=== PATIENT | female | born 1930 | race Caucasian/White ===

== ENCOUNTER 2016-10-18 10:11 | Emergency (ER) | payer MEDICARE, BC ==
[2016-10-18 10:17] VITALS: BP 150/90
--- NOTE | 2016-10-18 10:35 | UC ---
Complaint Female HPI - HPI Summary HPI Summary: 86 female presents with complaints of urinary frequency, urgency and burning that began last night however really worsened this morning. Patient denies known blood. States she has had 2 of these with one being ~2 months ago and one ~1 year ago. She states she has recently been diagnosed with prolapsed bladder and does not know if these infections are related. Patient denies back pain, abdominal pain and fever/chills. Normal bowel movements. No other PMHx. Has not taken any medications. Denies vaginal discharge and complaints. Denies external genitalia symptoms, erythema, discharge. - History Of Current Complaint Chief Complaint: UCGU Stated Complaint: UTI Time Seen by Provider: 10/18/16 10:33 Hx Obtained From: Patient ?: No Onset/Duration: Sudden Onset, Lasting Days - 1, Worse Since Timing: Constant Severity Initially: Mild Severity Currently: Moderate Pain Intensity: 8 Pain Scale Used: 0-10 Numeric Character: Burning Aggravating Factor(s): Urination Alleviating Factor(s): Nothing Associated Signs And Symptoms: Positive: Negative - Allergies/Home Medications Allergies/Adverse Reactions: Allergies Allergy/AdvReac Type Severity Reaction Status Date / Time Penicillins [PCN] Allergy Unknown Verified 10/18/16 10:17 Reaction Details Sulfa Antibiotics Allergy Unknown Verified 10/18/16 10:17 Reaction Details PMH/Surg Hx/FS Hx/Imm Hx - Additional Past Medical History Additional PMH: PMHx: prolapsed bladder. Denies HTN, Diabetes, Kidney disease and asthma. No medications. Other GI/ History: Urinary tract infection hx - Surgical History Surgical History: Yes Surgery Procedure, Year, and Place: D&C X's 2, CATARACTS - Family History Known Family History: Positive: Unknown, Cardiac Disease, Hypertension - Social History Alcohol Use: Daily Alcohol Amount: WINE Substance Use Type: None Smoking Status (MU): Never Smoked Tobacco - Immunization History Most Recent Influenza Vaccination: never Most Recent Tetanus Shot: unsure Most Recent Pneumonia Vaccination: never Review of Systems Constitutional: Negative Skin: Negative Respiratory: Negative Cardiovascular: Negative Gastrointestinal: Negative Genitourinary: Dysuria, Frequency, Urgency Musculoskeletal: Negative All Other Systems Reviewed And Are Negative: Yes Physical Exam Triage Information Reviewed: Yes Appearance: Well-Appearing, No Pain Distress, Well-Nourished Vital Signs: Initial Vital Signs Temp 98.3 F 10/18/16 10:12 Pulse 69 10/18/16 10:12 Resp 14 10/18/16 10:12 BP 150/90 10/18/16 10:12 Pulse Ox 98 10/18/16 10:12 slightly elevated BP noted, compared to previous visits and similar, patient states it increases when she is at doctors. Vital Signs Reviewed: Yes Eyes: Positive: Conjunctiva Clear ENT: Positive: Hearing grossly normal Neck: Positive: Supple, Nontender Respiratory: Positive: Chest non-tender, Lungs clear, Normal breath sounds, No respiratory distress, No accessory muscle use Cardiovascular: Positive: RRR, No Murmur, Pulses Normal Abdomen Description: Positive: Nontender, No Organomegaly, Soft. Negative: Bruit, CVA Tenderness (R), CVA Tenderness (L), Distended, Guarding, McBurney's Point Tenderness, Peritoneal Signs, Pulsatile Mass Bowel Sounds: Positive: Present Musculoskeletal: Positive: Strength Intact, ROM Intact Neurological: Positive: Alert Psychological Exam: Normal Skin Exam: Normal Complaint Female Dx - Course Course Of Treatment: urinalysis obtained and positive for leuk and blood. patient's symptoms did just begin. will send out for culture. due to symptoms, history and urinalysis findings will treat with macrobid at this time as she has no kidney disease and was given same medication last 2 episodes with relief. Increase fluid intake, advil for pain. Patient did not want pyridium. Follow up PCP/OBGYN especially due to more recurrent infections and prolapsed bladder. Aware of worsening signs and symptoms and to return if occur. - Differential Dx/Diagnosis Differential Diagnosis/HQI/PQRI: Renal Colic, Ureteral Stone, Urinary Tract Infection, Other - urinary prolapse Provider Diagnoses: UTI Discharge - Discharge Plan Condition: Stable Disposition: HOME Prescriptions: Nitrofurantoin Macrocrystals* [Macrodantin*] 100 mg PO BID #10 cap Patient Education Materials: Urinary Traction Infection in Older Adults (ED) Referrals: Kehinde Brush MD [Primary Care Provider] - Additional Instructions: Take medication as directed until entire dose is finished. Drink plenty of fluids, water and cranberry juice. Advil for pain as desired. Follow up with PCP. Return if symptoms worsen or do not improve or new symptoms develop as we discussed.
== END 2016-10-18 10:55 | disposition home or self-care (01) ==
LOC: UCEAST 10:11
DX: N39.0 Urinary tract infection, site not specified (principal); Z87.440 Personal history of urinary (tract) infections; N81.10 Cystocele, unspecified
CPT/HCPCS: 81003; 87086; 99212; G0463

== ENCOUNTER 2017-10-18 10:45 | Emergency (ER) | payer MEDICARE, BC ==
--- OUTSIDE RECORDS SUMMARY | 2017-10-18 10:53 | XMS REPORT ---
:1930 External Reference #:[id number] Author Organization [employer] Address [address] [place] [address] Phone [phone] Care Team Providers Name Role Phone Kehinde Brush III, MD Primary Care Physician Unavailable Payers Type Date Identification Numbers Payment Provider Subscriber Medicare Primary Effective: Policy Number: Medicare Hamlet Lindsey 1995 [id number] PayID: [id number] [address] [place] [address] Medigap Part B Policy Number: [id number] [facility] Star Lindsey PayID: [id number] [address] [place] [address] Problems Date Description Provider Status Onset: 03/15/2017 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 Onset: 03/15/2017 Lumbar spondylolisthesis Casper Mendez MD Active Onset: 03/08/2017 Low back pain Casper Mendez MD Active Onset: 03/02/2017 Sprain of shoulder and upper arm Elver Dover MD Active Family History Date Family Member(s) Problem(s) Comments General Heart Disease Social History Type Date Description Comments Marital Status Lives With Occupation Retired Cigarette Use Never Smoked Cigarettes ETOH Use Occasionally consumes alcohol Smoking Patient has never smoked Recreational Drug Use Denies Drug Use Daily Caffeine Comsumes on average 1 cup of decaff coffee per day Exercise Type/Frequency Exercises regularly Exercise Type/Frequency Walks, [place] Track machine, dances Allergies, Adverse Reactions, Alerts Date Description Reaction Status Severity Comments 08/04/2008 Sulfa active 08/04/2008 Penicillins active rash Medications Medication Date Status Form Strength Qnty SIG Indications Ordering Provider Acetaminophen / Active Tablets 325mg 2 tablets Unknown 0000 by mouth every 6 hours as needed for pain/feve r Advil / Active Capsules 200mg as needed Unknown 0000 Hair/Skin/Nails/B / Active Tablets Unknown iotin 0000 Benzonatate 05/08/ Hx Capsules 100mg 30caps 1-2 tab R05 Kehinde Alcala 2018 - by mouth Trudi, 10/12/ three M.D. 2018 times a day as needed Meloxicam 01/19/ Hx Tablets 7.5mg 30tabs take one M54.2 Kehinde Alcala 2017 - tab Trudi, 01/31/ daily as M.D. 2016 needed for pain, avoid other nsaids No Active Hx Unknown Medications 2016 - 2016 Phenazopyridine 03/14/ Hx Tablets 100mg take 1 Unknown HCL 2016 - tablet by 04/06/ mouth 2017 three times a day Nitrofurantoin 03/14/ Hx Capsules 100mg take 1 Unknown Monohyd Macro 2016 - capsule 04/06/ by mouth 2017 twice a day No Active 06/23/ Hx Unknown Medications 2015 - 2015 [place] 06/23/ Hx Tablets 5-325mg 45tabs 1 or 2 by M17.11 Mike 2015 - mouth Konstantin, 04/06/ every M.D. 2017 night as needed pain Calcium 04/30/ Hx Tablets 315-200mg- 1 po bid Kehinde Alcala Citrate-Vitamin D 2009 - Unit Trudi, 06/22/ M.D. 2015 Ranitidine HCL 08/04/ Hx Capsules 150mg 60caps 1 po bid Kehinde Alcala 2008 - Trudi, 06/22/ M.D. 2015 Meloxicam / Hx Tablets 7.5mg take one Unknown 0000 - tab twice 05/07/ daily as 2018 needed for pain, avoid other nsaids Medications Administered in Office Medication Date Status Form Strength Qnty SIG Indications Ordering Provider Depomedrol 40MG 09/20/ Administered Injection Mike 2017 Sariah Pryor Triamcinolone 02/02/ Administered Injection Lorena (Kenalog) 2016 DELORES Medina Triamcinolone 02/02/ Administered Injection Lorena (Kenalog) 2016 DELORES Medina Depomedrol 40MG 12/27/ Administered Injection Dirk 2015 Sariah Pryor Depomedrol 40MG 10/04/ Administered Injection Dirk 2015 Sariah Pryor Depomedrol 40MG 06/23/ Administered Injection Dirk 2015 Sariah Pryor Immunizations CPT Code Status Date Vaccine Lot # [id number] Given 10/02/2001 Td (History By Patient) TD-160 Vital Signs Date Vital Result Comment 10/12/2017 Height 61.5 inches 5'1.50" Weight 119.00 lb Heart Rate 76 /min BP Systolic 130 mmHg BP Diastolic 96 mmHg Body Temperature 98.1 F O2 % BldC Oximetry 99 % BMI (Body Mass Index) 22.1 kg/m2 09/20/2017 Height 61.5 inches 5'1.50" Weight 114.00 lb Heart Rate 82 /min BP Systolic 153 mmHg BP Diastolic 86 mmHg Body Temperature 97.3 F BMI (Body Mass Index) 21.2 kg/m2 09/14/2017 Height 61.5 inches 5'1.50" Weight 121.12 lb Heart Rate 74 /min BP Systolic Sitting 130 mmHg BP Diastolic Sitting 80 mmHg O2 % BldC Oximetry 97 % BMI (Body Mass Index) 22.5 kg/m2 08/09/2017 Height 61.5 inches 5'1.50" Weight 114.00 lb Heart Rate 88 /min BP Systolic Sitting 130 mmHg BP Diastolic Sitting 90 mmHg Respiratory Rate 16 /min Body Temperature 98.4 F Pain Level 3 BMI (Body Mass Index) 21.2 kg/m2 05/08/2017 Weight 114.25 lb Heart Rate 71 /min BP Systolic Sitting 128 mmHg BP Diastolic Sitting 82 mmHg Body Temperature 97.7 F O2 % BldC Oximetry 96 % 03/15/2017 Height 61.5 inches 5'1.50" Weight 118.00 lb Heart Rate 66 /min BP Systolic Sitting 122 mmHg BP Diastolic Sitting 72 mmHg Pain Level 6 BMI (Body Mass Index) 21.9 kg/m2 03/08/2017 Height 61.5 inches 5'1.50" Weight 116.00 lb Heart Rate 61 /min BP Systolic Sitting 127 mmHg BP Diastolic Sitting 67 mmHg Pain Level 3 BMI (Body Mass Index) 21.6 kg/m2 03/02/2017 Height 61.5 inches 5'1.50" Weight 116.00 lb per pt Heart Rate 66 /min reg BP Systolic Sitting 165 mmHg Rue, reg cuff BP Diastolic Sitting 89 mmHg Rue, reg cuff Respiratory Rate 16 /min Body Temperature 97.9 F tympanic Pain Level 3 left shoulder and muscle BMI (Body Mass Index) 21.6 kg/m2 02/02/2017 Height 61.5 inches 5'1.50" Weight 116.00 lb Heart Rate 62 /min Respiratory Rate 14 /min Body Temperature 98.0 F Pain Level 8 BMI (Body Mass Index) 21.6 kg/m2 01/19/2017 Height 61.5 inches 5'1.50" Weight 119.00 lb Heart Rate 67 /min BP Systolic Sitting 140 mmHg 155/88 with pt's cuff BP Diastolic Sitting 82 mmHg 155/88 with pt's cuff Body Temperature 98.4 F O2 % BldC Oximetry 97 % BMI (Body Mass Index) 22.1 kg/m2 01/05/2017 Weight 116.00 lb Heart Rate 65 /min BP Systolic Sitting 186 mmHg BP Diastolic Sitting 92 mmHg Body Temperature 96.0 F O2 % BldC Oximetry 97 % 04/06/2016 Height 61.5 inches 5'1.50" Weight 122.00 lb BP Systolic Sitting 136 mmHg BP Diastolic Sitting 64 mmHg Body Temperature 98.1 F O2 % BldC Oximetry 98 % BMI (Body Mass Index) 22.7 kg/m2 12/28/2015 Height 61.5 inches 5'1.50" Weight 115.00 lb Heart Rate 69 /min BP Systolic 162 mmHg BP Diastolic 80 mmHg BMI (Body Mass Index) 21.4 kg/m2 10/05/2015 Height 61.5 inches 5'1.50" Weight 115.00 lb Heart Rate 66 /min Pain Level 8 BMI (Body Mass Index) 21.4 kg/m2 07/15/2015 Height 61.5 inches 5'1.50" Weight 115.00 lb Heart Rate 66 /min BP Systolic 151 mmHg BP Diastolic 91 mmHg BMI (Body Mass Index) 21.4 kg/m2 06/24/2015 Height 61.5 inches 5'1.50" Weight 115.00 lb Heart Rate 67 /min BP Systolic 159 mmHg BP Diastolic 83 mmHg BMI (Body Mass Index) 21.4 kg/m2 04/30/2009 Heart Rate 68 /min BP Systolic Sitting 156 mmHg 161/76 BP Diastolic Sitting 84 mmHg 161/76 04/17/2009 Height 61.5 inches 5'1.50" Weight 132.00 lb Heart Rate 72 /min BP Systolic Sitting 154 mmHg BP Diastolic Sitting 98 mmHg BMI (Body Mass Index) 24.5 kg/m2 08/04/2008 Height 61.5 inches 5'1.50" Weight 137.00 lb Heart Rate 68 /min BP Systolic Sitting 146 mmHg BP Diastolic Sitting 80 mmHg BMI (Body Mass Index) 25.5 kg/m2 Results Test Date Test Result H/L Range Note CBC Auto Diff 09/14/2017 White Blood Count 7.9 10^3/uL 3.5-10.8 Red Blood Count 4.43 10^6/uL 4.00-5.40 Hemoglobin 11.5 g/dL Low 12.0-16.0 Hematocrit 35 % 35-47 Mean Corpuscular Volume 79 fL Low 80-97 Mean Corpuscular Hemoglobin 26 pg Low 27-31 Mean Corpuscular HGB Conc 33 g/dL 31-36 Red Cell Distribution Width 16 % High 10.5-15 Platelet Count 403 10^3/uL 150-450 Mean Platelet Volume 8.1 um3 7.4-10.4 Abs Neutrophils 5.0 10^3/uL 1.5-7.7 Abs Lymphocytes 1.9 10^3/uL 1.0-4.8 Abs Monocytes 0.8 10^3/uL 0-0.8 Abs Eosinophils 0.1 10^3/uL 0-0.6 Abs Basophils 0.1 10^3/uL 0-0.2 Abs Nucleated RBC 0 10^3/uL Granulocyte % 63.7 % 38-83 Lymphocyte % 23.7 % Low 25-47 Monocyte % 10.0 % High 0-7 Eosinophil % 1.6 % 0-6 Basophil % 1.0 % 0-2 Nucleated Red Blood Cells % 0 Connective Tissue Panel 09/14/2017 Anti-Nuclear Antibody 0.4 U 1 Cyclic Citrullinated Peptide <15.6 U 2 Interpretation See Comment 3 Laboratory test finding 09/14/2017 Erythrocyte Sed Rate 25 mm/Hr 0-40 C Reactive Protein 15.30 mg/L High <8.01 Lyme Disease Serology Negative Negative 4 Laboratory test finding 01/05/2017 Lyme Disease Serology Negative Negative 5 Poc Urinalysis 10/18/2016 Poc Glucose, Urine Negative Negative Poc Bilirubin, Urine Negative Negative Poc Ketone, Urine Negative Negative Poc Specific [place], Urine 1.010 1.010-1.030 Poc Blood, Urine 2+ Negative Poc pH, Urine 6.0 5-9 Poc Protein, Urine Negative Negative Poc Urobilinogen, Urine 0.2 Negative Poc Nitrite, Urine Negative Negative Poc Leukocytes, Urine 3+ Negative Poc Color, Urine Yellow Poc Clarity, Urine Clear 6 Urine Culture And Sensitivities 10/18/2016 Urine Culture SEE RESULT BELOW 7, 8 Urine Culture And Sensitivities 08/28/2016 Urine Culture SEE RESULT BELOW 9, 10 Urine Culture And Sensitivities 04/06/2016 Urine Culture SEE RESULT BELOW 11 Urinalysis Profile 04/06/2016 Urine Color Yellow Urine Appearance Clear Urine Specific [place] 1.011 1.010-1.030 Urine pH 5.0 5-9 Urine Urobilinogen Negative Negative Urine Ketones Negative Negative Urine Protein Negative Negative Urine Leukocytes 1+ Negative Urine Blood Negative Negative Urine Nitrite Negative Negative Urine Bilirubin Negative Negative Urine Glucose Negative Negative Urine White Blood Cell Trace(0-5/hpf) Absent Urine Red Blood Cell Trace(0-2/hpf) Absent Urine Bacteria Absent Absent Urine Squamous Epithelial Cell Present Absent Urine Hyaline Casts Present Absent Ua Routine 04/06/2016 Ua Specific [place] 1.010 Ua PH 6 Ua Color yellow Ua Appera clear Ua WBC trace Ua Protein trace Ua Glucose neg Ua Ketones neg Ua Bilirubin neg Ua Urobilinogen neg Ua Nitrite neg Ua Occult Blood trace Urine Culture And Sensitivities 03/14/2016 Urine Culture SEE RESULT BELOW 12, 13 1 REFERENCE VALUE <=1.0 (Negative) 2 REFERENCE VALUE <20.0 (Negative) 3 Tests for antibodies to dsDNA and TARI antigens are not performed automatically unless the NUBIA result is > or= 3.0 U. Studies performed at [facility] indicate that positive NUBIA results <3.0 U are rarely accompanied by positive second order tests. Test Performed by: [facility] - [address] [address] 4 No evidence of antibodies to B. burgdorferi detected. False negative results may occur in recently infected patients (<=2 weeks) due to low or undetectable antibody levels to B. burgdorferi. If recent exposure is suspected, a second sample should be collected and tested in 2-4 weeks. Test Performed by: [facility] [place] [address] 5 Serologic response to B. burgdorferi infection is not detected, but cannot rule out early infection during which low or undetectable antibody levels to B. burgdorferi may be present. If clinically indicated, a new serum specimen should be submitted in 7-14 days. Test Performed by: [facility] [place] [address] 6 Director Radio News: [id number] 8 SEE RESULT BELOW Name: HAMLET LINDSEY : [address]: Brooklynn Wing MD Acct: [id number] Unit: [id number] AGE: 86 Location: [facility] Re10/18/16 SEX: F Status: DEP ER SPEC: [id number] AGGIE: 10/18/16-[address]: Britney FRYE REQ: [id number] RECD: 10/18/167 STATUS: CARL HARRIS DR: [facility] Kehinde Brush III, MD _ SOURCE: URINE SPDESC: ORDERED: Urine Culture COMMENTS: [id number] Procedure Result Reported Site Urine Culture Final 10/20/16- 842 ML Organism 1 ESCHERICHIA COLI Durbin Count >100,000 (Many) CFU/ML 1. ESCHERICHIA COLI M.I.C. RX --------- ------ Ampicillin >=32 R Cefazolin <=4 S Cefepime <=1 S Ceftriaxone <=1 S Ciprofloxacin <=0.25 S Gentamicin <=1 S Levofloxacin <=0.12 S Meropenem <=0.25 S Nitrofurantoin <=16 S Tetracycline <=1 S Pipercillin/Tazobactam <=4 S Trimethoprim/Sulfamethoxazole <=20 S Amoxicillin/Clavulanic Acid 4 S Aztreonam <=1 S Contact the Microbiology Department for any additional antibiotic reporting. * ML - MAIN LAB ([facility]) . END OF REPORT * ML=Testing performed at Main Lab DEPARTMENT OF PATHOLOGY, [address] [place] [address] Carlos Perez M.D. Director [facility] # [id number] 9 [id number] 10 SEE RESULT BELOW Name: ROSALIAHAMLET Jaciel : [address]: Greg Rasmussen MD Acct: [id number] Unit: [id number] AGE: 86 Location: [facility] Re08/28/16 SEX: F Status: DEP ER SPEC: [id number] AGGIE: 08/28/16-1350 [facility] DR: Siomara Alvarez NP REQ: [id number] RECD: 08/29/16-1025 STATUS: CARL HARRIS DR: [facility] Kehinde Brush III, MD _ SOURCE: URINE SPDESC: ORDERED: Urine Culture COMMENTS: [id number] Procedure Result Reported Site Urine Culture Final 08/31/16- 827 ML Organism 1 ESCHERICHIA COLI Durbin Count >100,000 (Many) CFU/ML Organism 2 NORMAL NONA Durbin Count 1-10,000 (Few) CFU/ML 1. ESCHERICHIA COLI M.I.C. RX --------- ------ Ampicillin >=32 R Cefazolin <=4 S Cefepime <=1 S Ceftriaxone <=1 S Ciprofloxacin <=0.25 S Gentamicin <=1 S Levofloxacin <=0.12 S Meropenem <=0.25 S Nitrofurantoin <=16 S Tetracycline <=1 S Pipercillin/Tazobactam <=4 S Trimethoprim/Sulfamethoxazole <=20 S Amoxicillin/Clavulanic Acid 8 S Aztreonam <=1 S Contact the Microbiology Department for any additional antibiotic reporting. * ML - MAIN LAB ([facility]) . END OF REPORT * ML=Testing performed at Main Lab DEPARTMENT OF PATHOLOGY, [address] [place] [address] Carlos Perez M.D. Director [facility] # [id number] 11 SEE RESULT BELOW Name: HAMLET LINDSEY : [address]: Kehinde Brush III, MD Acct: [id number] Unit: [id number] AGE: 85 Location: [facility] Re04/06/16 SEX: F Status: REG REF SPEC: [id number] AGGIE: 04/06/16-1042 [facility] DR: Kehinde Brush III, MD REQ: [id number] RECD: 04/06/16 STATUS: COMP _ SOURCE: URINE SPDESC: ORDERED: Urine Culture COMMENTS: [id number] Urine Source: Random Procedure Result Reported Site Urine Culture Final 04/07/16- 1604 ML No growth of clinically significant organisms * ML - MAIN LAB ([facility]) . END OF REPORT * ML=Testing performed at Main Lab DEPARTMENT OF PATHOLOGY, [address] [place] [address] Carlos Perez M[address] Director [facility] # [id number] 12 [id number] 13 SEE RESULT BELOW Name: GRICELDAPONCEHAMLET : [address]: Greg Rasmussen MD Acct: [id number] Unit: [id number] AGE: 85 Location: [facility] Re03/14/16 SEX: F Status: DEP ER SPEC: [id number] AGGIE: 03/14/16-1331 [facility] DR: Siomara Alvarez NP REQ: [id number] RECD: 03/14/16 STATUS: CARL HARRIS DR: Karly Mason III, MD _ SOURCE: URINE SPDESC: ORDERED: Urine Culture COMMENTS: [id number] Procedure Result Reported Site Urine Culture Final 03/16/16- 0817 ML Organism 1 KLEBSIELLA PNEUMONIAE Durbin Count >100,000 (Many) CFU/ML 1. KLEBSIELLA PNEUMONIAE M.I.C. RX --------- ------ Ampicillin R Cefazolin <=4 S Cefepime <=1 S Ceftriaxone <=1 S Ciprofloxacin <=0.25 S Gentamicin <=1 S Levofloxacin <=0.12 S Meropenem <=0.25 S Nitrofurantoin <=16 S Tetracycline <=1 S Pipercillin/Tazobactam <=4 S Trimethoprim/Sulfamethoxazole <=20 S Amoxicillin/Clavulanic Acid <=2 S Aztreonam <=1 S Contact the Microbiology Department for any additional antibiotic reporting. * ML - MAIN LAB ([facility]) . END OF REPORT * ML=Testing performed at Main Lab DEPARTMENT OF PATHOLOGY, [address] [place] [address] Carlos Perez M[address] Director [facility] # [id number] Procedures Date CPT Code Description Status 09/20/2017 Inject/Drain Joint/Bursa Major W/O US Completed 08/09/2017 Inject/Drain Joint/Bursa Major W/O US Completed 02/02/2017 Inject/Drain Joint/Bursa Major W/O US Completed 12/28/2015 Inject/Drain Joint/Bursa Major W/O US Completed 10/05/2015 Inject/Drain Joint/Bursa Major W/O US Completed 06/24/2015 Inject/Drain Joint/Bursa Major W/O US Completed Encounters Type Date Location Provider CPT E/M Dx Office Visit 08/09/2017 [facility]ry[facility] M.D. 10874 M17.11 2:15p C.M.AKarol Office Visit 05/08/2017 [facility] Internal Medicine - Kehinde rBush, [address] R05 2:00p Katherine Rolle Office Visit 03/15/2017 [facility] 77257 M43.16 2:00p Of Ramsey Mendez MD M47.26 M54.5 Office Visit 03/08/2017 1:00p [facility] [place] 45923 M54.5 Services Of Ramsey Mendez MD Office Visit 03/02/2017 10:45a [place] [address] S46.011A Of C.M.AKarol S46.012A Office Visit 02/02/2017 11:00a [facility] [address] S46.011A C.M.A. S46.012A M54.2 M54.5 M25.552 M25.551 Office Visit 01/19/2017 2:20p [facility] Internal Medicine Kehinde Brush, [address]056 M54.2 - Katherine Rolle M25.511 R03.0 Office Visit 01/05/2017 11:40a [facility] Internal Medicine Kehinde Brush, [address]016 M54.2 - Katherine Rolle M25.511 R03.0 R21 Office Visit 04/06/2016 10:00a [facility] Internal Medicine Kehinde Brush, [address] R30.0 - Katherine Rolle Office Visit 07/15/2015 2:45p [facility]ry[facility] M.D. 82705 M17.11 C.M.AKarol Office Visit 06/24/2015 1:30p [facility] M.D. 18677 M17.11 C.M.A. Office Visit 04/30/2009 3:00p DO Not Use [employer] AT Kehinde Brush, [address] 401.9 Mahogany Rolle Office Visit 04/17/2009 3:00p DO Not Use [employer] [place] [address] 618.4 [facility] 401.9 Office Visit 08/04/2008 10:45a [facility] AT Kehinde Brush, [address] 724.2 [facility] Sariah 733.00 Plan of Care 10/12/2017 - Kehinde Brush M.D.D64.9 Anemia, unspecifiedComments:New microcytic anemia; check additional labs and stool blood test.R19.4 Change in bowel habitComments:New c/o more frequent. softer stools since last Fall. With new findings of a microcytic anemia willcheck stools for any blood with further GI eval if (+)
--- OUTSIDE RECORDS SUMMARY | 2017-10-18 10:53 | XMS REPORT ---
:1930 External Reference #:[id number] Author Organization [employer] Address [address] [place] [address] Phone [phone] Care Team Providers Name Role Phone Kehinde Brush III, MD Primary Care Physician Unavailable Payers Type Date Identification Numbers Payment Provider Subscriber Medicare Primary Effective: Policy Number: Medicare Hamlet Lindsey 1995 [id number] PayID: [id number] [address] [place] [address] Medigap Part B Policy Number: [id number] [facility] Star Lindsey PayID: [id number] [address] [place] [address] Problems Date Description Provider Status Onset: 03/15/2017 [...] Exercise Type/Frequency Exercises regularly Exercise Type/Frequency Walks, [employer] Track machine, dances Allergies, Adverse Reactions, Alerts Date Description Reaction Status Severity Comments 08/04/2008 Sulfa active 08/04/2008 Penicillins active rash Medications Medication Date Status Form Strength Qnty SIG Indications Ordering Provider Benzonatate 05/08/ Active Capsules 100mg 30caps 1-2 tab R05 Kehinde Alcala 2018 by mouth Trudi, three M.D. times a day as needed Acetaminophen / Active Tablets 325mg 2 tablets Unknown 0000 by mouth every 6 hours as needed for pain/feve r Advil / Active Capsules 200mg as needed Unknown 0000 Meloxicam 01/19/ Hx Tablets 7.5mg 30tabs take one M54.2 Kehinde Alcala 2017 - tab Trudi, 01/31/ daily as M.D. 2017 needed for pain, avoid other nsaids No Active 04/06/ Hx Unknown Medications 2016 - 2016 Phenazopyridine 03/14/ Hx Tablets 100mg take 1 Unknown HCL 2016 - tablet by 04/06/ mouth 2017 three times a day Nitrofurantoin 03/14/ Hx Capsules 100mg take 1 Unknown Monohyd Macro 2015 - capsule 04/06/ by mouth 2016 twice a day No Active 06/23/ Hx Unknown Medications 2015 - 2015 [place] 06/23/ Hx Tablets 5-325mg 45tabs 1 or 2 by M17.11 Dirk 2016 - mouth Konstantin, 04/06/ every M.D. 2017 [...] Form Strength Qnty SIG Indications Ordering Provider Triamcinolone 02/02/ Administered Injection Lorena (Kenalog) 2016 DELORES Medina Triamcinolone 02/02/ Administered Injection Lorena (Kenalog) 2016 DELORES Medina Depomedrol 40MG 12/27/ Administered Injection Dirk 2015 Sariah Pryor Depomedrol 40MG 10/04/ Administered Injection Dirk 2015 Sariah Pryor Depomedrol 40MG 06/23/ Administered Injection Dirk 2015 Sariah Pryor Immunizations CPT Code Status Date Vaccine Lot # [id number] Given 10/02/2001 Td (History By Patient) TD-160 Vital Signs Date Vital Result Comment 09/20/2017 Height 61.5 inches 5'1.50" Weight 114.00 [...] Poc Ketone, Urine Negative Negative Poc Specific [place], Urine 1.010 1.010-1.030 Poc Blood, Urine 2+ [...] Color Yellow Urine Appearance Clear Urine Specific [place] 1.011 1.010-1.030 Urine pH 5.0 5-9 Urine [...] Present Absent Ua Routine 04/06/2016 Ua Specific [place] 1.010 Ua PH 6 Ua Color yellow [...] > or= 3.0 U. Studies performed at [facility] indicate that positive NUBIA results <3.0 U are rarely accompanied by positive second order tests. Test Performed by: [facility] [address] [place] [address] 4 No evidence of antibodies to B. burgdorferi detected. False negative results may occur in recently infected patients (<=2 weeks) due to low or undetectable antibody levels to B. burgdorferi. If recent exposure is suspected, a second sample should be collected and tested in 2-4 weeks. Test Performed by: [facility] - [place] [address] [place] [address] 5 Serologic response to B. burgdorferi infection is not detected, but cannot rule out early infection during which low or undetectable antibody levels to B. burgdorferi may be present. If clinically indicated, a new serum specimen should be submitted in 7-14 days. Test Performed by: [facility] - [facility] [address] [place] [address] 6 African History Professor: [id number] SEE RESULT BELOW Name: HAMLET LINDSEY : [address]: Brooklynn Wing MD Acct: [id number] Unit: [id number] AGE: 86 Location: [facility] Re10/18/16 SEX: F Status: DEP ER SPEC: [id number] AGGIE: 10/18/16-[address] [facility] [address]: Britney FRYE REQ: [id number] RECD: 10/18/161235 STATUS: CARL HARRIS DR: [facility] Kehinde Brush III, MD _ SOURCE: URINE SPDESC: ORDERED: Urine Culture COMMENTS: [id number] Procedure Result Reported Site Urine Culture Final 10/20/16- 0843 ML Organism 1 ESCHERICHIA COLI [place] Count >100,000 (Many) CFU/ML 1. ESCHERICHIA COLI [...] antibiotic reporting. * ML - MAIN LAB ([facility]) . END OF REPORT * ML=Testing performed at Main Lab DEPARTMENT OF PATHOLOGY, [address] [place] [address] Carlos Perez M.D. Director [facility] # [id number] 9 [id number] 10 SEE RESULT BELOW Name: HAMLET LINDSEY : [address]: Greg Rasmussen MD Acct: [id number] Unit: [id number] AGE: 86 Location: [facility] Re08/28/16 SEX: F Status: DEP ER SPEC: [id number] AGGIE: 08/28/16-[address] [facility] [address]: Siomara Alvarez NP REQ: [id number] RECD: 08/29/16-1025 STATUS: CARL HARRIS DR: [facility] Kehinde Brush III, MD _ SOURCE: URINE SPDESC: ORDERED: Urine Culture COMMENTS: [id number] Procedure Result Reported Site Urine Culture Final 08/31/16- 0828 ML Organism 1 ESCHERICHIA COLI [place] Count >100,000 (Many) CFU/ML Organism 2 NORMAL NONA [place] Count 1-10,000 (Few) CFU/ML 1. ESCHERICHIA COLI [...] antibiotic reporting. * ML - MAIN LAB ([facility]) . END OF REPORT * ML=Testing performed at Main Lab DEPARTMENT OF PATHOLOGY, [address] [place] [address] Carlos Perez M.D. Director [facility] # [id number] 11 SEE RESULT BELOW Name: HAMLET LINDSEY : [address]: Kehinde Brush III, MD Acct: [id number] Unit: [id number] AGE: 85 Location: [facility] Re04/06/16 SEX: F Status: REG REF SPEC: [id number] AGGIE: 04/06/16-[address] [facility] [address]: Kehinde Brush III, MD REQ: [id number] RECD: 04/06/16 STATUS: COMP _ SOURCE: URINE SPDESC: ORDERED: Urine Culture COMMENTS: [id number] Urine Source: Random Procedure Result Reported Site Urine Culture Final 04/07/16- 1604 ML No growth of clinically significant organisms * ML - MAIN LAB ([facility]) . END OF REPORT * ML=Testing performed at Main Lab DEPARTMENT OF PATHOLOGY, [address] [place] [address] Carlos Perez M.D. Director [facility] # [id number] 12 [id number] 13 SEE RESULT BELOW Name: HAMLET LINDSEY : [address]: Greg Rasmussen MD Acct: [id number] Unit: [id number] AGE: 85 Location: [facility] Re03/14/16 SEX: F Status: DEP ER SPEC: [id number] AGGIE: 03/14/[address] [facility] [address]: Siomara Alvarez NP REQ: [id number] RECD: 03/14/16 STATUS: CARL HARRIS DR: Karly Mason III, MD _ SOURCE: URINE SPDESC: ORDERED: Urine Culture COMMENTS: [id number] Procedure Result Reported Site Urine Culture Final 03/16/16- 0817 ML Organism 1 KLEBSIELLA PNEUMONIAE [place] Count >100,000 (Many) CFU/ML 1. KLEBSIELLA PNEUMONIAE [...] antibiotic reporting. * ML - MAIN LAB ([facility]) . END OF REPORT * ML=Testing performed at Main Lab DEPARTMENT OF PATHOLOGY, [address] [place] [address] Carlos Perez M.D. Director [facility] # [id number] Procedures Date CPT Code Description Status 09/20/201748843 Inject/Drain Joint/Bursa Major W/O US Completed 08/09/201787230 Inject/Drain Joint/Bursa Major W/O US Completed 02/02/201726058 Inject/Drain Joint/Bursa Major W/O US Completed 12/28/2015 Inject/Drain Joint/Bursa Major W/O US Completed 10/05/2015 Inject/Drain Joint/Bursa Major W/O US Completed 06/24/2015 Inject/Drain Joint/Bursa Major W/O US Completed Encounters Type Date Location Provider CPT E/M Dx Office Visit 09/20/2017 [facility] M.D. 17825 M17.11 10:15a [facility] Office Visit 08/09/2017 [facility] M.D. 40335 M17.11 2:15p C.M[facility]A. Office Visit 05/08/2017 [facility] Internal Medicine - Kehinde Brush, 97323 R05 2:00p Katherine Rolle Office Visit 03/15/2017 [facility] 54855 M43.16 2:00p Of Ramsey Mendez MD M47.26 M54.5 Office Visit 03/08/2017 1:00p [facility] 59960 M54.5 Services Of Ramsey Mendez MD Office Visit 03/02/2017 10:45a [place] [address] S46.011A Of C.M.AKarol S46.012A Office Visit 02/02/2017 11:00a [facility] [place] [address] S46.011A C.M.AKarol S46.012A M54.2 M54.5 M25.552 M25.551 Office Visit 01/19/2017 2:20p [facility] Internal Medicine Kehinde Brush, 32730 M54.2 - Katherine Rolle M25.511 R03.0 Office Visit 01/05/2017 11:40a [facility] Internal Medicine Kehinde Brush, 57099 M54.2 - Katherine Rolle M25.511 R03.0 R21 Office Visit 04/06/2016 10:00a [facility] Medicine Kehinde Brush, 59055 R30.0 - Katherine Rolle Office Visit 07/15/2015 2:45p [facility] M.D. 30290 M17.11 C.M.AKarol Office Visit 06/24/2015 1:30p [facility] M.D. 42592 M17.11 C.M.A. Office Visit 04/30/2009 3:00p DO Not Use Outside Sales Manager AT Kehinde Brush, 43477 401.9 Mahogany Rolle Office Visit 04/17/2009 3:00p DO Not Use [place] [address] 618.4 [facility] 401.9 Office Visit 08/04/2008 10:45a [facility] AT [facility], [address] 724.2 [facility] Sariah 733.00 Plan of Care 09/20/2017 - Mike Pryor M.D.M17.11 Unilateral primary osteoarthritis, right kneeFollow up:Follow up: As needed Proceed with activities as able, OK to use a cane or walking stick
[2017-10-18 10:59] VITALS: BP 154/77
[2017-10-18] MEDS ORDERED: Tetan/Diph/Pertus SYR(Tdap)* 0.5 ML SYR(BOOSTRIX) use SYR IM ONE (11:01)
--- NOTE | 2017-10-18 11:20 | ED ---
Skin Complaint - HPI Summary HPI Summary: 87-year-old female presents with right leg laceration 2 days ago. She cut it on a car door. She states that she placed a bandaide on the area. Her tetanus is not up-to-date. She denies any other injury. No active bleeding. No numbness or tingling. She is not diabetic. Only has a history of arthritis. no rash or fever. - History of Current Complaint Chief Complaint: UCLaceration Time Seen by Provider: 10/18/17 10:54 Stated Complaint: LEG LAC Pain Intensity: 2 - Allergy/Home Medications Allergies/Adverse Reactions: Allergies Allergy/AdvReac Type Severity Reaction Status Date / Time Penicillins Allergy Hives Verified 10/18/17 11:00 Sulfa (Sulfonamide Allergy Hives Verified 10/18/17 11:00 Antibiotics) Home Medications: Home Medications Acetaminophen [Acetaminophen ER] 650 mg PO 10/18/17 [History] PMH/Surg Hx/FS Hx/Imm Hx Endocrine/Hematology History: Denies: Hx Diabetes Cardiovascular History: Denies: Hx Hypertension, Hx Pacemaker/ICD History: Denies: Hx Renal Disease Sensory History: Reports: Hx Hearing Aid Psychiatric History: Denies: Hx Panic Disorder - Surgical History Surgery Procedure, Year, and Place: D&C X's 2, CATARACTS Infectious Disease History: No Infectious Disease History: Denies: History Other Infectious Disease, Traveled Outside the [place] in Last 30 Days - Family History Known Family History: Positive: Unknown, Cardiac Disease, Hypertension - Social History Alcohol Use: Daily Alcohol Amount: WINE Substance Use Type: Reports: None Smoking Status (MU): Never Smoked Tobacco Review of Systems Negative: Fever Negative: Chest Pain Negative: Shortness Of Breath Positive: Other - laceration right leg All Other Systems Reviewed And Are Negative: Yes Physical Exam Triage Information Reviewed: Yes Vital Signs On Initial Exam: Initial Vitals Temp Pulse Resp BP Pulse Ox 97.8 F 84 18 154/77 98 10/18/17 10:54 10/18/17 10:54 10/18/17 10:54 10/18/17 10:54 10/18/17 10:54 Vital Signs Reviewed: Yes Appearance: Positive: Well-Appearing Skin: Positive: Other - 3cm by 1/2cm laceration of right ibarra Head/Face: Positive: Normal Head/Face Inspection Eyes: Positive: Normal, Conjunctiva Clear ENT: Positive: Pharynx normal Respiratory/Lung Sounds: Positive: Clear to Auscultation, Breath Sounds Present Cardiovascular: Positive: Normal, RRR Musculoskeletal: Positive: Strength/ROM Intact - right leg, Other - good pulses Neurological: Positive: Normal Psychiatric: Positive: Normal Procedures - Laceration/Wound Repair 1 Location: Other - right lower leg Description: Linear Length, Depth and Shape: 3cm by 1/2cm Irrigated w/ Saline (ccs): 100 Closure: SteriStrips Sterile Dressing Applied?: No - telfa and coband Diagnostics - Vital Signs Vital Signs Temp Pulse Resp BP Pulse Ox 10/18/17 10:54 97.8 F 84 18 154/77 98 - Laboratory Lab Statement: Any lab studies that have been ordered have been reviewed, and results considered in the medical decision making process. Course/Dx - Course Course Of Treatment: 87-year-old female presents with right leg laceration 2 days ago. She cut it on a car door. She states that she placed a bandaide on the area. Her tetanus is not up-to-date. She denies any other injury. No active bleeding. No numbness or tingling. She is not diabetic. Only has a history of arthritis. no rash or fever. On exam his 3cm by half centimeter laceration of right lower leg. Cleaned area and place Steri-Strips as is past 24 hours. Told to change dressing and wash area once today. Patient has follow up with primary next week can follow up for wound check and about blood pressure as is elevated at this visit. told if develop fever to go to ED. Patient understands agrees with plan. - Differential Diagnoses - Skin Complaint Differential Diagnoses: Other - abrasion, laceration, avulsion - Diagnoses Provider Diagnoses: Laceration of right lower leg, Elevated blood pressure reading Discharge - Sign-Out/Discharge Documenting (check all that apply): Patient Departure - Discharge Plan Condition: Good Disposition: HOME Prescriptions: Cephalexin CAP* [Keflex CAP*] 500 mg PO BID #14 cap Patient Education Materials: Laceration Without Closure (ED) Referrals: Kehinde Brush MD [Primary Care Provider] - Additional Instructions: wash area with soap and water once a day, remove dressing and change dressing Take keflex twice a day for 7 days Follow up with primary for wound check do not swim Return to ED if develop any spreading redness, fever, or any new or worsening symptoms - Billing Disposition and Condition Condition: GOOD Disposition: Home
== END 2017-10-18 11:31 | disposition home or self-care (01) ==
LOC: UCEAST 10:45
DX: S81.811A Laceration without foreign body, right lower leg, initial encounter (principal); W26.8XXA Contact with other sharp object(s), not elsewhere classified, initial encounter; Y93.9 Activity, unspecified; Y92.810 Car as the place of occurrence of the external cause; Z23 Encounter for immunization; R03.0 Elevated blood-pressure reading, without diagnosis of hypertension; Z88.0 Allergy status to penicillin; Z88.2 Allergy status to sulfonamides
CPT/HCPCS: 90471; 90715; 99212; G0463

== ENCOUNTER 2017-11-15 10:20 | Emergency (ER) | payer MEDICARE, BC ==
--- OUTSIDE RECORDS SUMMARY | 2017-11-15 10:27 | XMS REPORT ---
:1930 External Reference #:[id number] Author Organization [email or web address] Address [address] [place] [address] Phone [phone] Care Team Providers Name Role Phone Kehinde Brush III, MD Primary Care Physician Unavailable Payers Type Date Identification Numbers Payment Provider Subscriber Medicare Primary Effective: Policy Number: Medicare Hamlet Lindsey 1995 [id number] PayID: [id number] [address] [place] [address] Medigap Part B Policy Number: [id number] [facility] Star Lindsey PayID: [id number] [address] [place] [address] Medigap Part B Policy Number: [id number] Medicare Hamlet Lindsey PayID: [id number] [address] [place] [address] Problems Date Description Provider Status Onset: 03/15/2017 [...] Exercise Type/Frequency Exercises regularly Exercise Type/Frequency Walks, [place] Track machine, dances Allergies, Adverse Reactions, Alerts [...] 06/23/ Hx Unknown Medications 2015 - 2015 [place] 06/23/ Hx Tablets 5-325mg 45tabs 1 or [...] CPT Code Status Date Vaccine Lot # [id number] Given 10/02/2001 Td (History By Patient) TD-160 Vital Signs Date Vital Result Comment 10/25/2017 Height 61.5 inches 5'1.50" Weight 121.00 lb Heart Rate 83 /min BP Systolic Sitting 130 mmHg BP Diastolic Sitting 80 mmHg O2 % BldC Oximetry 97 % BMI (Body Mass Index) 22.5 kg/m2 10/12/2017 Height 61.5 inches 5'1.50" Weight 119.00 [...] Test Date Test Result H/L Range Note Stool Occult BLD 1-3 10/17/2017 Occult Blood - Stool positive x2 SPCS Diag CBC Auto Diff 10/12/2017 White Blood Count 8.5 10^3/uL 3.5-10.8 Red Blood Count 4.46 10^6/uL 4.00-5.40 Hemoglobin 11.7 g/dL Low 12.0-16.0 Hematocrit 36 % 35-47 Mean Corpuscular Volume 80 fL 80-97 Mean Corpuscular Hemoglobin 26 pg Low 27-31 Mean Corpuscular HGB Conc 33 g/dL 31-36 Red Cell Distribution Width 16 % High 10.5-15 Platelet Count 409 10^3/uL 150-450 Mean Platelet Volume 8.2 um3 7.4-10.4 Abs Neutrophils 5.2 10^3/uL 1.5-7.7 Abs Lymphocytes 2.3 10^3/uL 1.0-4.8 Abs Monocytes 0.8 10^3/uL 0-0.8 Abs Eosinophils 0.2 10^3/uL 0-0.6 Abs Basophils 0.1 10^3/uL 0-0.2 Abs Nucleated RBC 0 10^3/uL Granulocyte % 60.8 % 38-83 Lymphocyte % 27.3 % 25-47 Monocyte % 9.1 % High 0-7 Eosinophil % 2.0 % 0-6 Basophil % 0.8 % 0-2 Nucleated Red Blood Cells % 0 Iron & Iron Binding Capacity 10/12/2017 Iron 38 g/dL Low 50-212 Unsaturated Iron Binding 294 g/dL Total Iron Binding Capacity 332 g/dL 250-450 Transferrin 237 mg/dL 203-362 % Iron Saturation 11 % Low 15-55 Laboratory test finding 10/12/2017 Ferritin 180.8 ng/mL 11-307 TSH (Thyroid Stim Horm) 2.39 mcIU/mL 0.34-5.60 CBC Auto Diff 09/14/2017 White Blood Count [...] Poc Ketone, Urine Negative Negative Poc Specific [place], Urine 1.010 1.010-1.030 Poc Blood, Urine 2+ [...] Color Yellow Urine Appearance Clear Urine Specific [place] 1.011 1.010-1.030 Urine pH 5.0 5-9 Urine [...] Present Absent Ua Routine 04/06/2016 Ua Specific [place] 1.010 Ua PH 6 Ua Color yellow [...] > or= 3.0 U. Studies performed at [facility] indicate that positive NUBIA results <3.0 U are rarely accompanied by positive second order tests. Test Performed by: [facility] - [address] [address] 4 No evidence of antibodies to B. burgdorferi detected. False negative results may occur in recently infected patients (<=2 weeks) due to low or undetectable antibody levels to B. burgdorferi. If recent exposure is suspected, a second sample should be collected and tested in 2-4 weeks. Test Performed by: [place] [address] 5 Serologic response to B. burgdorferi infection is not detected, but cannot rule out early infection during which low or undetectable antibody levels to B. burgdorferi may be present. If clinically indicated, a new serum specimen should be submitted in 7-14 days. Test Performed by: [facility] - [address] [address] French Weaver: [id number] 8 SEE RESULT BELOW Name: HAMLET LINDSEY : [address]: Brooklynn Wing MD Acct: [id number] Unit: [id number] AGE: 86 Location: [facility] Re10/18/16 SEX: F Status: DEP ER SPEC: [id number] AGGIE: 10/18/16-[address] [facility] [address]: Britney FRYE REQ: [id number] RECD: 10/18/16-123 STATUS: CARL HARRIS DR: [facility] Kehinde Brush III, MD _ SOURCE: URINE SPDESC: ORDERED: Urine Culture COMMENTS: [id number] Procedure Result Reported Site Urine Culture Final 10/20/16- 0843 ML Organism 1 ESCHERICHIA COLI [place] Count >100,000 (Many) CFU/ML 1. ESCHERICHIA COLI [...] antibiotic reporting. * ML - MAIN LAB ([facility]) . END OF REPORT * ML=Testing performed at Main Lab DEPARTMENT OF PATHOLOGY, [address] [place] [address] Carlos Perez M.D. Director [facility] # [id number] 9 [id number] 10 SEE RESULT BELOW Name: ROSALIAHAMLET M : [address]: Greg Rasmussen MD Acct: [id number] Unit: [id number] AGE: 86 Location: [facility] Re08/28/16 SEX: F Status: DEP ER SPEC: [id number] AGGIE: 08/28/16-[address] [facility] [address]: Siomara Alvarez NP REQ: [id number] RECD: 08/29/16-1025 STATUS: CARL HARRIS DR: [facility] Kehinde Brush III, MD _ SOURCE: URINE SPDESC: ORDERED: Urine Culture COMMENTS: [id number] Procedure Result Reported Site Urine Culture Final 08/31/16- 827 ML Organism 1 ESCHERICHIA COLI [place] Count >100,000 (Many) CFU/ML Organism 2 NORMAL NONA [place] Count 1-10,000 (Few) CFU/ML 1. ESCHERICHIA COLI [...] antibiotic reporting. * ML - MAIN LAB ([facility]) . END OF REPORT * ML=Testing performed at Main Lab DEPARTMENT OF PATHOLOGY, [address] [place] [address] Carlos Perez M.D. Director [facility] # [id number] 11 SEE RESULT BELOW Name: HAMLET LINDSEY : [address]: Kehinde Brush III, MD Acct: [id number] Unit: [id number] AGE: 85 Location: [facility] Re04/06/16 SEX: F Status: REG REF SPEC: [id number] AGGIE: 04/06/16-[address]: Kehinde Brush III, MD REQ: [id number] RECD: 04/06/16 STATUS: COMP _ SOURCE: URINE SPDESC: ORDERED: Urine Culture COMMENTS: [id number] Urine Source: Random Procedure Result Reported Site Urine Culture Final 04/07/16- 1604 ML No growth of clinically significant organisms * ML - MAIN LAB ([facility]) . END OF REPORT * ML=Testing performed at Main Lab DEPARTMENT OF PATHOLOGY, [address] [place] [address] Carlos Perez M.D. Director [facility] # [id number] 12 [id number] 13 SEE RESULT BELOW Name: HAMLET LINDSEY Jaciel : [address]: Greg Rasmussen MD Acct: [id number] Unit: [id number] AGE: 85 Location: [facility] Re03/14/16 SEX: F Status: DEP ER SPEC: [id number] AGGIE: 03/14/16-[address] [facility] [address]: Siomara Alvarez NP REQ: [id number] RECD: 03/14/16 STATUS: CARL HARRIS DR: Karly Mason III, MD _ SOURCE: URINE SPDESC: ORDERED: Urine Culture COMMENTS: [id number] Procedure Result Reported Site Urine Culture Final 03/16/16- 0817 ML Organism 1 KLEBSIELLA PNEUMONIAE [place] Count >100,000 (Many) CFU/ML 1. KLEBSIELLA PNEUMONIAE [...] antibiotic reporting. * ML - MAIN LAB ([facility]) . END OF REPORT * ML=Testing performed at Main Lab DEPARTMENT OF PATHOLOGY, [address] [place] [address] Carlos Perez M.D. Director [facility] # [id number] Procedures Date CPT Code Description Status 09/20/2017 Inject/Drain Joint/Bursa Major W/O US Completed 08/09/2017 Inject/Drain Joint/Bursa Major W/O US Completed 02/02/2017 Inject/Drain Joint/Bursa Major W/O US Completed 12/28/2015 Inject/Drain Joint/Bursa Major W/O US Completed 10/05/2015 Inject/Drain Joint/Bursa Major W/O US Completed 06/24/2015 Inject/Drain Joint/Bursa Major W/O US Completed Encounters Type Date Location Provider CPT E/M Dx Office Visit 10/12/2017 3:00p [facility] Kehinde Brush, 70759 D64.9 - Katherine Rolle R19.4 Office Visit 09/14/2017 1:20p [facility] Kehinde Brush, 58965 M54.2 - Katherine Rolle Office Visit 08/09/2017 2:15p [facility]ry[facility] M.D. 47166 M17.11 C.M.AKarol Office Visit 05/08/2017 2:00p [facility] Kehinde Brush, 99150 R05 - Katherine Rolle Office Visit 03/15/2017 2:00p [facility] [address]10 M43.16 Of Ramsey Mendez MD M47.26 M54.5 Office Visit 03/08/2017 1:00p [facility] [place] 76091 M54.5 Services Of Ramsey Mendez MD Office Visit 03/02/2017 10:45a [place] [address] S46.011A Of C.M.A. S46.012A Office Visit 02/02/2017 11:00a [facility] [place] [address] S46.011A C.M.A. S46.012A M54.2 M54.5 M25.552 M25.551 Office Visit 01/19/2017 2:20p [facility] Kehinde Brush, 20350 M54.2 - Katherine Rolle M25.511 R03.0 Office Visit 01/05/2017 11:40a [facility] Kehinde Brush 13704 M54.2 - Katherine Rolle M25.511 R03.0 R21 Office Visit 04/06/2016 10:00a [facility] Kehinde Brush, 02178 R30.0 - Katherine Rolle Office Visit 07/15/2015 2:45p [facility] M.D. 09098 M17.11 C.MKarolAKarol Office Visit 06/24/2015 1:30p [facility] M.D. 47179 M17.11 C.M.AKarol Office Visit 04/30/2009 3:00p DO Not Use [facility] AT Kehinde Brush, 13274 401.9 [place] [facility] Office Visit 04/17/2009 3:00p DO Not Use [place] [address] 618.4 [facility] 401.9 Office Visit 08/04/2008 10:45a [facility] AT Kehinde Brush, 73829 724.2 [facility] Sariah 733.00 Plan of Care Future Appointment(s):05/01/2018 2:20 pm - Keihnde Brush M.D. at [facility]10/25/2017 - Kehinde Brush M.D.D64.9 Anemia, unspecifiedFollow up:wellness exam in 6 months or prn
[2017-11-15 10:35] VITALS: BP 192/98
--- NOTE | 2017-11-15 10:58 | UC ---
HPI Wound/Suture Re-check - HPI Summary HPI Summary: patient cut RLL on the car door about 3 weeks ago----The wound was steri- striped and the patient was placed keflex----wound has developed and ulceration with sloughing skin continues to have serous drainage--no streaking no purulent drainage no erythema around site - History Of Current Complaint Chief Complaint: UCLaceration Stated Complaint: WOUND ON LEG Time Seen by Provider: 11/15/17 10:25 Hx Obtained From: Patient Onset/Duration: Sudden Onset, Lasting Weeks - 3 Pain Intensity: 0 Pain Scale Used: 0-10 Numeric - Allergies/Home Medications Allergies/Adverse Reactions: Allergies Allergy/AdvReac Type Severity Reaction Status Date / Time Penicillins Allergy Hives Verified 11/15/17 10:35 Sulfa (Sulfonamide Allergy Hives Verified 11/15/17 10:35 Antibiotics) PMH/Surg Hx/FS Hx/Imm Hx Previously Healthy: Yes - Surgical History Surgical History: Yes Surgery Procedure, Year, and Place: D&C X's 2, CATARACTS - Family History Known Family History: Positive: Unknown, Cardiac Disease, Hypertension - Social History Occupation: Retired Lives: With Family Alcohol Use: Occasionally Alcohol Amount: WINE Substance Use Type: None Smoking Status (MU): Never Smoked Tobacco - Immunization History Most Recent Influenza Vaccination: never Most Recent Tetanus Shot: 10/18/17 Most Recent Pneumonia Vaccination: never Hx Tetanus, Diphtheria Vaccination: Yes Vaccination Up to Date: Yes Review of Systems Constitutional: Negative Skin: Other - 15 mm diameter ulceration RLL Eyes: Negative ENT: Negative Respiratory: Negative Cardiovascular: Negative Gastrointestinal: Negative Genitourinary: Negative Motor: Negative Neurovascular: Negative Musculoskeletal: Negative Neurological: Negative Psychological: Negative Is Patient Immunocompromised?: No All Other Systems Reviewed And Are Negative: Yes Physical Exam Triage Information Reviewed: Yes Appearance: Well-Appearing, No Pain Distress, Well-Nourished Vital Signs: Initial Vital Signs Temp 9887.3 F 11/15/17 10:29 Pulse 78 11/15/17 10:29 Resp 20 11/15/17 10:29 BP 192/98 11/15/17 10:29 Pulse Ox 98 11/15/17 10:29 Vital Signs Reviewed: Yes Eye Exam: Normal Eyes: Positive: Conjunctiva Clear ENT Exam: Normal ENT: Positive: Normal ENT inspection, Hearing grossly normal. Negative: Trismus , Muffled voice, Hoarse voice Dental Exam: Normal Neck exam: Normal Neck: Positive: Supple, Nontender Respiratory Exam: Normal Respiratory: Positive: Chest non-tender, No respiratory distress, No accessory muscle use Cardiovascular Exam: Normal Cardiovascular: Positive: RRR, No Murmur, Pulses Normal, Brisk Capillary Refill , Other: - minimal amount of Pedal edema Musculoskeletal Exam: Normal Musculoskeletal: Positive: Strength Intact, ROM Intact, Edema @ - minimal RLE Neurological Exam: Normal Neurological: Positive: Alert, Muscle Tone Normal Psychological Exam: Normal Psychological: Positive: Normal Response To Family, Age Appropriate Behavior Skin Exam: Normal Skin: Positive: Other - 15 mm diameter skin ulceration RLE after injury 4 weeks ago-- Course/Dx - Course Course Of Treatment: mepilex dressing applied---wound culture obtained, appoinment made at the wound clinic for patient to follow with, BP re-checked 140/90 (will follow with Dr. Brush) - Differential Dx - Laceration/Wound Provider Diagnoses: elevated blood pressure without diagnosis of hypertension, wound ulceration RLE Discharge - Sign-Out/Discharge Documenting (check all that apply): Patient Departure All imaging exams completed and their final reports reviewed: No Studies - Discharge Plan Condition: Stable Disposition: HOME Patient Education Materials: Hypertension (ED), Chronic Wounds (ED) Referrals: [facility] [Outside] - 11/21/17 8:00 am Kehinde Brush MD [Primary Care Provider] - 2 Weeks (BP recheck 140/90- at the urgent care) Additional Instructions: Keep dressing on leg ----may be changed every 3-5 days or if becomes saturated with drainage Elevated Legs Follow with wound clinic at [facility] (on the main floor near the gift shop and water fall) - Billing Disposition and Condition Condition: STABLE Disposition: Home
--- NOTE | 2017-11-16 16:13 | UC ---
- Progress Note Progress Note: 11/16/2017 Wound culture negative for MRSA and S. Aureus. Pending final report. No change Lynn Chaudhary PA-C Discharge - Sign-Out/Discharge Documenting (check all that apply): Patient Departure - D/c home All imaging exams completed and their final reports reviewed: No Studies - Discharge Plan Condition: Stable Disposition: HOME Patient Education Materials: Hypertension (ED), Chronic Wounds (ED) Referrals: [facility] [Outside] - 11/21/17 8:00 am Kehinde Brush MD [Primary Care Provider] - 2 Weeks (BP recheck 140/90- at the urgent care) Additional Instructions: Keep dressing on leg ----may be changed every 3-5 days or if becomes saturated with drainage Elevated Legs Follow with wound clinic at [facility] (on the main floor near the gift shop and water fall) - Billing Disposition and Condition Condition: STABLE Disposition: Home
== END 2017-11-15 11:02 | disposition home or self-care (01) ==
LOC: UCEAST 10:20
DX: L97.819 Non-pressure chronic ulcer of other part of right lower leg with unspecified severity (principal); R03.0 Elevated blood-pressure reading, without diagnosis of hypertension; Z88.0 Allergy status to penicillin; Z88.2 Allergy status to sulfonamides
CPT/HCPCS: 87070; 87077; 87205; 87640; 87641; 99211; G0463

== ENCOUNTER 2019-11-14 17:15 | Observation (INO) ==
[2019-11-14 20:52] LABS: ABS Basophils 0.1 10^3/ul (0-0.2); ABS Eosinophils 0.1 10^3/ul (0-0.6); ABS Lymphocytes 1.9 10^3/ul (1.0-4.8); ABS Monocytes 0.8 10^3/ul (0-0.8); ABS Neutrophils 1.7 10^3/ul (1.5-7.7); Eosinophil % 2.6 %; Hematocrit 40 % (35-47); Hemoglobin 13.2 g/dL (12.0-16.0); Lymphocyte % 41.6 %; Mean Corpuscular HGB Conc 33 g/dL (31-36); Mean Corpuscular Hemoglobin 28 pg (27-31); Mean Corpuscular Volume 83 fL (80-97); Mean Platelet Volume 8.4 fL (7.4-10.4); Platelet Count 254 10^3/uL (150-450); Red Blood Count 4.78 10^6 /uL (3.70-4.87); Red Cell Distribution Width 14 % (10-15); White Blood Count 4.5 10^3/uL (3.5-10.8)
[2019-11-14 20:59] LABS: INR 0.98 (0.82-1.09)
[2019-11-14 21:10] LABS: ALT 20 U/L (7-52); Albumin 4.5 g/dL (3.2-5.2); Alkaline Phosphatase 35 U/L (34-104); BUN/Creatinine Ratio 25.6 (8-20); Blood Urea Nitrogen 22 mg/dL (6-24); CO2 Carbon Dioxide 28 mmol/L (22-32); Calcium 9.8 mg/dL (8.6-10.3); Chloride 106 mmol/L (101-111); EGFR African American 75.5 (>60); EGFR Non-African American 62.4 (>60); Globulin 2.3 g/dL (2-4); Glucose 135 mg/dL (70-100); Sodium 140 mmol/L (135-145); Total Protein 6.8 g/dL (6.4-8.9)
[2019-11-14 21:12] LABS: Anion Gap 6 mmol/L (2-11)
[2019-11-14 21:13] LABS: Troponin I 0.85 ng/mL (<0.03)
[2019-11-14 22:41] LABS: AST Redraw 20 U/L (13-39); Potassium Redraw 3.7 mmol/L (3.5-5.0)
[2019-11-14 22:45] LABS: Troponin I 0.84 ng/mL (<0.03)
[2019-11-14] MEDS ORDERED: HYDROcodone/ACETAMIN 5/325 mg TAB PO PRN (23:41)
[2019-11-15 00:06] LABS: C Reactive Protein < 1.00 mg/L (<8.01)
[2019-11-15 01:01] LABS: Erythrocyte Sed Rate 3 mm/Hr (0-29)
[2019-11-15 02:04] LABS: Troponin I 0.74 ng/mL (<0.03)
[2019-11-15 08:18] LABS: Troponin I 0.8 ng/mL (<0.03)
[2019-11-15] MEDS ORDERED: Aminophylline 25 MG/ML VIAL ONE (08:39)
[2019-11-15] MEDS ORDERED: Regadenoson 0.4 MG/5 ML SYRINGE ONE (08:39)
[2019-11-15 13:19] VITALS: BP 115/66
[2019-11-15 14:24] LABS: HDL Cholesterol 49.7 mg/dL
== END 2019-11-15 14:40 | disposition home or self-care (01) ==
LOC: ED 17:15 → INTOOBSV 23:06 → MEDTELE 23:06
PROVIDERS: ADMIT Nurse Practitioner Acute Care; ATTEND Internal Medicine

== ENCOUNTER 2020-11-02 09:17 | Observation (INO) ==
[2020-11-02] MEDS ORDERED: NS 0.9% 1000 ml BAG 1,000 ML IV ONE (09:21)
[2020-11-02 09:36] LABS: ABS Basophils 0.1 10^3/ul (0-0.2); ABS Eosinophils 0.1 10^3/ul (0-0.6); ABS Lymphocytes 2.6 10^3/ul (1.0-4.8); ABS Neutrophils 4.7 10^3/ul (1.5-7.7); Eosinophil % 1.7 %; Hematocrit 35 % (35-47); Hemoglobin 11.3 g/dL (12.0-16.0); Lymphocyte % 30.6 %; Mean Corpuscular HGB Conc 33 g/dL (31-36); Mean Corpuscular Hemoglobin 25 pg (27-31); Mean Corpuscular Volume 76 fL (80-97); Mean Platelet Volume 7.6 fL (7.4-10.4); Platelet Count 371 10^3/uL (150-450); Red Blood Count 4.52 10^6 /uL (3.70-4.87); Red Cell Distribution Width 15 % (10-15); White Blood Count 8.5 10^3/uL (3.5-10.8)
[2020-11-02] MEDS ORDERED: Iodixanol (CONTRAST) 320 MG/ML 100 ML SDV IV ONE (09:40)
[2020-11-02 09:46] LABS: INR 1.06 (0.86-1.15)
[2020-11-02 09:56] LABS: Albumin 3.7 g/dL (3.2-5.2); Albumin/Globulin Ratio 1.2 (1-3); Calcium 9.4 mg/dL (8.6-10.3); EGFR African American 75.4 (>60); EGFR Non-African American 62.3 (>60); HDL Cholesterol 53.6 mg/dL; Potassium 4.5 mmol/L (3.5-5.0); Total Bilirubin 0.8 mg/dL (0.2-1.0); Total Protein 6.7 g/dL (6.4-8.9)
[2020-11-02 10:30] LABS: TSH Ultra Thyroid Stim Horm 3.93 mcIU/mL (0.34-5.60)
[2020-11-02 10:44] LABS: Vitamin D Total 25(OH) 43.1 ng/mL (20-50)
[2020-11-02 11:04] LABS: C Reactive Protein 37.67 mg/L (<8.01)
[2020-11-02 11:52] LABS: Activated Partial Thrombo Time 20.7 seconds (26.0-38.0)
[2020-11-02 12:21] LABS: Urine Appearance Clear; Urine Bilirubin Negative (Negative); Urine Blood Negative (Negative); Urine Color Straw; Urine Glucose Negative (Negative); Urine Ketones Negative (Negative); Urine Nitrite Negative (Negative); Urine Protein Negative (Negative); Urine Specific Gravity 1.024 (1.002-1.030); Urine Urobilinogen Negative (Negative)
[2020-11-02 12:31] LABS: Urine Bacteria Absent (Absent); Urine Red Blood Cell Trace(0-2/hpf) (Absent); Urine Squamous Epithelial Cell Present (Absent); Urine White Blood Cell Trace(0-5/hpf) (Absent)
[2020-11-02 13:23] LABS: Erythrocyte Sed Rate 41 mm/Hr (0-29)
[2020-11-03] MEDS ORDERED: Enoxaparin 40 MG/0.4 ML SYR SUBCUT SCH (09:00)
[2020-11-03 16:40] VITALS: BP 159/78
== END 2020-11-03 16:35 | disposition home or self-care (01) ==
LOC: ED 09:17 → MEDTELE 09:17
PROVIDERS: ADMIT Internal Medicine; ATTEND Hospitalist

== ENCOUNTER 2021-12-15 14:35 | Observation (INO) ==
[2021-12-15] MEDS ORDERED: Iodixanol (CONTRAST) 320 MG/ML 100 ML SDV IV ONE (14:43)
[2021-12-15 15:15] LABS: ABS Basophils 0.1 10^3/ul (0-0.2); ABS Eosinophils 0.1 10^3/ul (0-0.6); ABS Lymphocytes 1.7 10^3/ul (1.0-4.8); ABS Monocytes 0.6 10^3/ul (0-0.8); ABS Neutrophils 4.9 10^3/ul (1.5-7.7); Eosinophil % 1.1 %; Hematocrit 34 % (35-47); Hemoglobin 10.8 g/dL (12.0-16.0); Lymphocyte % 22.8 %; Mean Corpuscular HGB Conc 32 g/dL (31-36); Mean Corpuscular Hemoglobin 25 pg (27-31); Mean Corpuscular Volume 80 fL (80-97); Mean Platelet Volume 8.2 fL (7.4-10.4); Platelet Count 293 10^3/uL (150-450); Red Blood Count 4.26 10^6 /uL (3.70-4.87); Red Cell Distribution Width 15 % (10-15); White Blood Count 7.3 10^3/uL (3.5-10.8)
[2021-12-15 16:13] LABS: Albumin 3.5 g/dL (3.2-5.2); Albumin/Globulin Ratio 1.6 (1-3); Calcium 9.1 mg/dL (8.6-10.3); Globulin 2.2 g/dL (2-4); HDL Cholesterol 46.8 mg/dL; Potassium 4.5 mmol/L (3.5-5.0); Total Bilirubin 0.6 mg/dL (0.2-1.0); Total Protein 5.7 g/dL (6.4-8.9); eGFR CKD-EPI 59.5 (>60)
[2021-12-15] MEDS ORDERED: Enoxaparin 30 MG/0.3 ML SYR SUBCUT SCH (17:00)
[2021-12-15 17:04] LABS: Activated Partial Thrombo Time 27.8 seconds (26.0-38.0); INR 1.02 (0.89-1.11)
[2021-12-15] MEDS ORDERED: HYDROcodone/ACETAMIN 5/325 mg TAB PO PRN (18:42)
[2021-12-15] MEDS: Metoprolol Tartrate 5 mg VIAL 5 ml VIAL (1 mg/ml) IV PRN ×2 (19:46→21:03)
[2021-12-15] MEDS ORDERED: CMCS: Pravastatin 20 mg TAB (NF) PO SCH (21:00)
[2021-12-15] MEDS ORDERED: Multivitamins/Minera Areds(NF) CAP PO SCH (21:00)
[2021-12-16 05:54] LABS: ABS Basophils 0.1 10^3/ul (0-0.2); ABS Eosinophils 0.1 10^3/ul (0-0.6); ABS Lymphocytes 1.7 10^3/ul (1.0-4.8); ABS Monocytes 0.7 10^3/ul (0-0.8); ABS Neutrophils 4.1 10^3/ul (1.5-7.7); Eosinophil % 1.6 %; Hematocrit 36 % (35-47); Hemoglobin 11.4 g/dL (12.0-16.0); Lymphocyte % 24.8 %; Mean Corpuscular HGB Conc 32 g/dL (31-36); Mean Corpuscular Hemoglobin 25 pg (27-31); Mean Corpuscular Volume 79 fL (80-97); Mean Platelet Volume 7.9 fL (7.4-10.4); Platelet Count 290 10^3/uL (150-450); Red Blood Count 4.56 10^6 /uL (3.70-4.87); Red Cell Distribution Width 14 % (10-15); White Blood Count 6.7 10^3/uL (3.5-10.8)
[2021-12-16 06:23] LABS: Calcium 9.2 mg/dL (8.6-10.3); Magnesium 1.8 mg/dL (1.9-2.7); Potassium 4.2 mmol/L (3.5-5.0); eGFR CKD-EPI 56.6 (>60)
[2021-12-16] MEDS: Metoprolol Tartrate 5 mg VIAL 5 ml VIAL (1 mg/ml) IV PRN (06:34)
[2021-12-16] MEDS ORDERED: Calcium Carb (TUMS) 500 mg CHEW TAB PO ONE (07:54)
[2021-12-16] MEDS ORDERED: Calcium Polycarbophil 625mg TB PO SCH (09:00)
[2021-12-16] MEDS ORDERED: BIFIDOBACTERIUM INFANTIS 4 MG PO SCH (09:00)
[2021-12-16] MEDS ORDERED: CALCIUM CARBONATE VITAMIN D3 PO SCH (09:00)
[2021-12-16] MEDS ORDERED: MINERA AREDS PO SCH (09:00)
[2021-12-16] MEDS ORDERED: MULTIVITAMINS PO SCH (09:00)
[2021-12-16] MEDS ORDERED: Magnesium Sulfate 2 gm BAG 2 GM/50 ML BAG IVPB ONE (10:21)
[2021-12-16] MEDS ORDERED: Metoprolol Tartrate 5 mg VIAL 5 ml VIAL (1 mg/ml) IV PRN (10:22)
[2021-12-16 12:03] VITALS: BP 172/68
== END 2021-12-16 15:00 | disposition home or self-care (01) ==
LOC: ED 14:35 → EDHOLD 14:35 → MEDTELE 12-16 05:28
PROVIDERS: ADMIT Internal Medicine; ATTEND Internal Medicine